=== PATIENT | male | born 1995 | race Caucasian/White ===

== ENCOUNTER 2018-08-25 07:42 | Emergency (ER) | payer BC ==
[2018-08-25] MEDS ORDERED: PHENYTOIN SODIUM EXTENDED 100 MG CAPSULE PO ONE (08:20)
--- NOTE | 2018-08-25 08:27 | RADIOLOGY REPORT (SQ) ---
EXAM DESCRIPTION: ANKLE RIGHT COMPLETE COMPLETED DATE/TIME: 08/25/2018 8:10 am REASON FOR STUDY: injured while having seizure COMPARISON: None. NUMBER OF VIEWS: Three views. TECHNIQUE: AP, lateral, and oblique radiographic images acquired of the right ankle. LIMITATIONS: None. FINDINGS: MINERALIZATION: Normal. BONES: No acute fracture or dislocation. No worrisome bone lesions. JOINTS: No effusions. SOFT TISSUES: No soft tissue swelling. No foreign body. OTHER: No other significant finding. IMPRESSION: NEGATIVE STUDY OF THE RIGHT ANKLE. NO RADIOGRAPHIC EVIDENCE OF ACUTE INJURY. TECHNICAL DOCUMENTATION: JOB ID: [id number] [employer]- All Rights Reserved Reading location - IP/workstation name: [email or web address]
--- NOTE | 2018-08-25 09:08 | ER Document Report ---
Entered by CARLTON GARCIA SCRIBE 08/25/18 0836 Acting as scribe for:CURT JEFFERSON MD ED General - General Chief Complaint: Probable Seizure Stated Complaint: POSSIBLE SEIZURE Time Seen by Provider: 08/25/18 07:53 Primary Care Provider: MONTEZ BECKER MD [ACTIVE STAFF] - Follow up as needed Mode of Arrival: Ambulatory Information source: Patient Notes: Patient is a 23 year old male with a history of a seizure disorder presents to the emergency department via EMS complaining of a seizure. Patient states he has a history of petit mal seizures which he was previously prescribed Depakote for. He states 2.5 years ago, he was instructed to stop taking Depakote because it was not helping, and has been without seizure medication since then. He states 2 weeks ago, he had his 1st grand mal seizure that lasted approximately 4 minutes while in [place], [place]. This occurred after he has been awake for over 24 hours. He states he presented to the emergency department and subsequently placed on Keppra 500 mg twice daily. He states at that time he also injured his right ankle. He states around 0700 this morning he had another seizure which lasted approximately 3 minutes. Girlfriend at bedside states the patient appeared to return to normal approximately 15 minutes later. Patient states he has trouble sleeping and reports not getting much sleep before this seizure or his seizure 2 weeks ago. Patient also complains of bilateral feet swelling occurring approximately 20 minutes after taking Keppra. This is also occurred when he takes sulfa medication. Patient's neurologist is Dr. Parry. He has not seen him in about a year. He also reports chronic morning vomiting with some esophageal erosion. He takes Zantac 150 mg in the mornings. He was being seen by Dr. Coker for this and had endoscopy confirming the erosive esophagitis. He had never been told to take antacids at bedtime to decrease the acid content and what he did vomit in the mornings. He has tried changing his diet and many other things and nothing seems to stop the morning vomiting. TRAVEL OUTSIDE OF THE [place] IN LAST 30 DAYS: No - Related Data Allergies/Adverse Reactions: Sulfa (Sulfonamide Antibiotics) Allergy (Mild, Verified 08/25/18 07:46) Past Medical History - General Information source: Patient - Social History Smoking Status: Never Smoker Cigarette use (# per day): No Chew tobacco use (# tins/day): No Smoking Education Provided: No Frequency of alcohol use: None Family History: Reviewed & Not Pertinent Neurological Medical History: Reports: Hx Seizures - "absence" LAST SEIZURE 3 YEARS AGO - Immunizations Immunizations up to date: Yes Hx Diphtheria, Pertussis, Tetanus Vaccination: Yes Review of Systems - Review of Systems Constitutional: No symptoms reported EENT: No symptoms reported Cardiovascular: No symptoms reported Respiratory: No symptoms reported Gastrointestinal: No symptoms reported Genitourinary: No symptoms reported Male Genitourinary: No symptoms reported Musculoskeletal: See HPI Skin: No symptoms reported Hematologic/Lymphatic: No symptoms reported Neurological/Psychological: See HPI, Seizure -: Yes All other systems reviewed and negative Physical Exam - Vital signs Vitals: Temp Pulse Resp BP Pulse Ox 98.4 F 90 16 120/62 95 08/25/18 07:48 08/25/18 07:48 08/25/18 07:48 08/25/18 07:48 08/25/18 07:48 - Notes Notes: GENERAL: Alert, interacts well. No acute distress. HEAD: Normocephalic, atraumatic. EYES: Pupils equal, round, and reactive to light. Extraocular movements intact. ENT: Oral mucosa moist, tongue midline. NECK: Full range of motion. Supple. Trachea midline. LUNGS: Clear to auscultation bilaterally, no wheezes, rales, or rhonchi. No respiratory distress. HEART: Regular rate and rhythm. No murmurs, gallops, or rubs. ABDOMEN: Soft, non-tender. Non-distended. Bowel sounds present in all 4 quadrants. No guarding, rigidity, or rebound. EXTREMITIES: Moves all 4 extremities spontaneously. Mild swelling to the bilateral feet. Swelling to the right lateral ankle, tender to palpate, consistent with patient's history. NEUROLOGICAL: Alert and oriented x3. Normal speech. PSYCH: Normal affect, normal mood. SKIN: Warm, dry, normal turgor. No rashes or lesions noted. Course - Vital Signs Vital signs: Temp Pulse Resp BP Pulse Ox 98.4 F 90 16 120/62 95 08/25/18 07:48 08/25/18 07:48 08/25/18 07:48 08/25/18 07:48 08/25/18 07:48 Discharge - Discharge Clinical Impression: Seizure, GERD with esophagitis Right ankle sprain Qualifiers: Encounter type: initial encounter Involved ligament of ankle: calcaneofibular ligament Qualified Code(s): S93.411A - Sprain of calcaneofibular ligament of right ankle, initial encounter Condition: Stable Disposition: HOME, SELF-CARE Additional Instructions: Seizure, Known Epileptic: You have had a seizure. Seizures may "break through" in an epileptic due to stress of infection or injury, a change in blood chemistry, or drug and alcohol use. Seizures may also occur when you do not get enough sleep. Another common cause is failure to take medication as prescribed. Your doctor has evaluated your situation for the likely cause of this seizure. It is important that you follow his advice concerning any medication changes and follow-up care. Further testing of anti-seizure medication levels in your blood may be necessary. If you have a [place] driver's license, it's important that you DO NOT DRIVE until given permission by your physician. This seizure must be reported to the [place] driver's license bureau. Call the doctor or return if seizures recur, or if new or unusual symptoms arise -- such as severe headache, confusion, excessive sleepiness, local weakness or numbness, neck stiffness, or fever. Take 400 mg of Dilantin at 11 AM today. Take an additional 400 mg of Dilantin at 3 PM today. Take 300 mg of Dilantin tonight and every night until you can follow-up with Dr. Parry. Be sure you get plenty of sleep and rest and avoid caffeine or any other stimulants. Take your Zantac in the morning and at bedtime. Drink a dose of Mylanta or Maalox at bedtime and during the night if you wake up. This will decrease the acid in your stomach so when you do vomit it will not burn your esophagus. Call Dr. Parry Monday to schedule an appointment this week. RETURN TO THE EMERGENCY ROOM IF ANY NEW OR WORSENING SYMPTOMS. Prescriptions: Phenytoin Sodium Extended [Dilantin 100 mg Capsule.er] 300 mg PO QHS #35 capsule Referrals: MONTEZ BECKER MD [ACTIVE STAFF] - Follow up as needed Scribe Attestation: 08/25/18 09:08 I personally performed the services described in the documentation, reviewed and edited the documentation which was dictated to the scribe in my presence, and it accurately records my words and actions. I personally performed the services described in the documentation, reviewed and edited the documentation which was dictated to the scribe in my presence, and it accurately records my words and actions.
[2018-08-25 09:35] VITALS: BP 130/62
== END 2018-08-25 09:35 | disposition home or self-care (01) ==
LOC: ER 07:42
DX: G40.909 Epilepsy, unspecified, not intractable, without status epilepticus (principal); K21.0 Gastro-esophageal reflux disease with esophagitis; K22.10 Ulcer of esophagus without bleeding; Z79.899 Other long term (current) drug therapy; S93.411A Sprain of calcaneofibular ligament of right ankle, initial encounter; X58.XXXA Exposure to other specified factors, initial encounter; M79.89 Other specified soft tissue disorders; R11.10 Vomiting, unspecified; Z88.2 Allergy status to sulfonamides
CPT/HCPCS: 99284